=== PATIENT | male | born 1985 | race Caucasian/White ===

== ENCOUNTER 2020-08-31 16:35 | Emergency (ER) | payer OTHER ==
[2020-08-31 18:59] LABS: BILIRUBIN NEGATIVE (NEGATIVE); BLOOD NEGATIVE Ery/uL (NEGATIVE); CLARITY CLEAR (CLEAR); COLOR YELLOW (YELLOW); GLUCOSE (U) NORMAL (NORMAL); LEUKOCYTES NEGATIVE Leu/uL (NEGATIVE); NITRITE NEGATIVE (NEGATIVE); PROTEIN NEGATIVE (NEGATIVE); SPECIFIC GRAVITY 1.025 (1.001-1.030); pH 6.5 (5.0-9.0)
[2020-08-31] MEDS ORDERED: MEDROL 4MG DOSEP4 MG PO (19:13)
[2020-08-31] MEDS ORDERED: CYCLOBENZAPRINE10 MG PO (19:13)
== END 2020-08-31 19:43 | disposition home or self-care (01) ==
LOC: FER 16:35
PROVIDERS: Nurse Practitioner Family
DX: S39.012A Strain of muscle, fascia and tendon of lower back, initial encounter (principal); X58.XXXA Exposure to other specified factors, initial encounter; Y92.009 Unspecified place in unspecified non-institutional (private) residence as the place of occurrence of the external cause
CPT/HCPCS: 81003; 96372; 99283; J1100; J1885

== ENCOUNTER 2021-12-11 15:17 | Emergency (ER) | payer OTHER ==
[~2021-12-11 15:17] MED LIST: CYCLOBENZAPRINE10 MG PO; MEDROL 4MG DOSEP4 MG PO
[2021-12-11 16:52] LABS: BASOPHIL 0.4 % (0-2); BUN/CREAT RATIO (CALC) 7.6 RATIO; CREATININE 1.05 mg/dL (0.67-1.17); EOSINOPHIL 1.6 % (0-5); HCT 46.3 % (42.0-52.0); HGB 15.9 g/dl (13.2-18.0); LYMPHOCYTE 16.4 % (15-48); MCH 29.8 pg (25.0-31.0); MCHC 34.3 g/dL (32.0-36.0); MCV 86.9 fL (78.0-100.0); MONOCYTE 6.8 % (0-12); MPV 9.1 fL (6.0-9.5); NEUTROPHIL 74.3 % (41-80); NRBC 0; PLT 280 K/uL (150-400); POTASSIUM 3.3 mmol/L (3.5-5.1); RBC 5.33 M/uL (4.70-6.00); RDW 12.5 % (11.5-14.0); WBC 13.8 K/uL (4.0-10.5)
[2021-12-11 17:06] LABS: LACTIC ACID 2.6 mmol/L (0.4-1.9)
[2021-12-11 17:09] LABS: CORONAVIRUS 2019 SARS-COV-2 NEGATIVE (NEGATIVE); INFLUENZA A NAA NEGATIVE (NEGATIVE)
[2021-12-11 18:14] LABS: BILIRUBIN NEGATIVE (NEGATIVE); BLOOD NEGATIVE Ery/uL (NEGATIVE); CLARITY CLEAR (CLEAR); COLOR YELLOW (YELLOW); GLUCOSE (U) NORMAL (NORMAL); LEUKOCYTES NEGATIVE Leu/uL (NEGATIVE); NITRITE NEGATIVE (NEGATIVE); PROTEIN NEGATIVE (NEGATIVE); SPECIFIC GRAVITY <=1.005 (1.001-1.030); UROBILINOGEN 0.2 mg/dL (0.2-1.0)
[2021-12-11] MEDS ORDERED: ZPAK PO (20:04)
[2021-12-11] MEDS ORDERED: MEDROL 4MG DOSEP4 MG PO (20:04)
== END 2021-12-11 20:32 | disposition home or self-care (01) ==
LOC: FER 15:17
PROVIDERS: Nurse Practitioner Family
DX: J20.9 Acute bronchitis, unspecified (principal); Z87.891 Personal history of nicotine dependence; Z88.1 Allergy status to other antibiotic agents; Z20.822 Contact with and (suspected) exposure to COVID-19; Z28.310 Unvaccinated for COVID-19
CPT/HCPCS: 36415; 71046; 80048; 81003; 83605; 84145; 85025; 87040; 87880; 94640; 94664; J2543; J7030; U0002

== ENCOUNTER 2022-01-31 01:54 | Inpatient (IN) | payer OTHER ==
[~2022-01-31] VITALS: Ht 180.3 cm; Wt 81.7 kg
[~2022-01-31 01:54] MED LIST changes: +ZPAK PO
[2022-01-31 02:19] LABS: BASOPHIL 0.5 % (0-2); EOSINOPHIL 0.5 % (0-5); HCT 44.5 % (42.0-52.0); HGB 15.8 g/dl (13.2-18.0); LYMPHOCYTE 39.9 % (15-48); MCH 29.8 pg (25.0-31.0); MCHC 35.5 g/dL (32.0-36.0); MONOCYTE 7.6 % (0-12); MPV 9.7 fL (6.0-9.5); NEUTROPHIL 51.2 % (41-80); NRBC 0; PLT 186 K/uL (150-400); RDW 12.5 % (11.5-14.0); WBC 3.8 K/uL (4.0-10.5)
[2022-01-31 02:35] LABS: ALBUMIN 3.7 g/dL (3.4-5.0); BILIRUBIN - TOTAL 0.7 mg/dL (0.2-1.0); GLOBULIN (CALCULATION) 2.9 g/dL; POTASSIUM 3.1 mmol/L (3.5-5.1); TOTAL PROTEIN 6.6 g/dL (6.4-8.2)
[2022-01-31 02:50] LABS: INFLUENZA A NAA NEGATIVE (NEGATIVE)
[2022-01-31 03:07] LABS: CORONAVIRUS 2019 SARS-COV-2 POSITIVE (NEGATIVE)
[2022-01-31] MEDS ORDERED: PRILOSEC20 MG PO (04:58)
[2022-01-31 09:57] LABS: MAGNESIUM 2.6 mg/dL (1.8-2.4); PHOSPHORUS 2.8 mg/dL (2.6-4.7); POTASSIUM 4.4 mmol/L (3.5-5.1)
[2022-01-31 14:16] LABS: LACTIC ACID 3.4 mmol/L (0.4-1.9)
[2022-02-01 07:13] LABS: HCT 40.6 % (42.0-52.0); HGB 13.8 g/dl (13.2-18.0); MCH 29.7 pg (25.0-31.0); MCV 87.3 fL (78.0-100.0); MPV 9.8 fL (6.0-9.5); RBC 4.65 M/uL (4.70-6.00); RDW 12.7 % (11.5-14.0); WBC 5.2 K/uL (4.0-10.5)
[2022-02-01 07:38] LABS: BUN/CREAT RATIO (CALC) 11.6 RATIO; CREATININE 0.86 mg/dL (0.67-1.17)
[2022-02-01] MEDS ORDERED: PROVENTIL INH (08:45)
[2022-02-01] MEDS ORDERED: DEXAMETHASONE 2M2 MG PO (08:45)
[2022-02-01] MEDS ORDERED: ATROVENT HFA12.9 GM INH (08:45)
--- NOTE | 2022-02-01 09:49 | NUR ---
02/01/ Mr. Palmer was admitted with dx of respiratory failure / COVID. He lives alone. Mr. Palmer is supported by [facility] and [employer]. He reports to experience anxiety and "mental problem". He reports to be treated by Dr. Davis and is not interested in Behavioral Health services. - Mr. Palmer is independent in the home and commnity.
== END 2022-02-01 12:12 | disposition home or self-care (01) | DRG 871 ==
LOC: FER 01:54 → FMS 03:46
PROVIDERS: Emergency Medicine; Nurse Practitioner; ADMIT Family Medicine
PROC: XW033E5 Introduction of Remdesivir Anti-infective into Peripheral Vein, Percutaneous Approach, New Technology Group 5 (ICD-10-PCS; principal; 2022-01-31)
PROC: 3E0DX3Z Introduction of Anti-inflammatory into Mouth and Pharynx, External Approach (ICD-10-PCS; 2022-01-31)
PROC: 8E0ZXY6 Isolation (ICD-10-PCS; 2022-01-31)
PROC: XW0DXM6 Introduction of Baricitinib into Mouth and Pharynx, External Approach, New Technology Group 6 (ICD-10-PCS; 2022-01-31)
DX: A41.89 Other specified sepsis (principal); J96.01 Acute respiratory failure with hypoxia; U07.1 COVID-19; N17.9 Acute kidney failure, unspecified; E87.3 Alkalosis; E87.6 Hypokalemia; R65.20 Severe sepsis without septic shock; F41.0 Panic disorder [episodic paroxysmal anxiety]; F32.A Depression, unspecified; F17.210 Nicotine dependence, cigarettes, uncomplicated; Z88.1 Allergy status to other antibiotic agents; Z88.8 Allergy status to other drugs, medicaments and biological substances; Z79.899 Other long term (current) drug therapy; Z99.81 Dependence on supplemental oxygen
CPT/HCPCS: 36415; 36600; 71045; 80048; 80053; 82728; 82803; 83036; 83605; 83615; 83735; 84100; 84145; 84484; 85025; 85379; 87040; 94010; 94640; 94664; 94667; 94668; 94760; 94762; C9113; C9399; J1650; J1885; J2405; J2930; J7030; J7050; J8540; U0002